=== PATIENT | female | born 1955 | race Caucasian/White ===

== ENCOUNTER 2023-10-18 14:11 | Outpatient (AMB) | payer OTHER, SELFPAY ==
--- NOTE | 2023-10-18 14:19 | MHC.PC.OV ---
Vital Signs 10/18/23 14:24 Height 5 ft 4.96 in Weight 170 lb 4 oz BMI 28.4 BP 104/63 Blood Pressure Location Lt brachial Position Sitting Pulse 88 Pulse Source Pulse Oximeter Temp 98.1 F Temp Source Oral Pulse Oximetry (%) 97 Oxygen Delivery Method Room Air Intake Visit Reasons: Est Care Intake Note: New patient visit Allergies No Known Allergies Allergy (Verified 10/18/23 14:19) Tobacco use date assessed: 10/18/23 Fall risk assessment: No Falls in past year Last assessed Fall Risk: 10/18/23 Dental Screening Dental Screen Date: 10/18/23 Did you have a dental visit in the last 12 months?: Yes Did you have a dental problem in the last 6 months where you did not have access to dental care?: No Was dental information given to patient?: Patient has dentist [facility] Surgical History (Updated 10/18/23 @ 14:35 by Dior Lockhart CMA) Hx of tonsillectomy Family History (Updated 10/18/23 @ 14:35 by Dior Lockhart CMA) Paternal Grandfather Emphysema lung Alcoholism Mother CAD (coronary artery disease) Dementia Social History Housing: House Patient Tobacco Use Status: Current someday Tobacco user Cigarette Packs Per Day: 0.25 Years Smoked: 30 e-Cigarette/Vaping Use: Never Used Second Hand Smoke Exposure: No service: No Current occupational status: employed Current occupation: [employer] Current occupational exposures/hazards: No Cognitive needs: No Hearing needs: No Vision needs: Yes (glasses) Questionnaire PHQ-9 Over the last 2 weeks, how often have you been bothered by any of the following problems? 1. Little interest or pleasure in doing things: not at all 2. Feeling down, depressed, or hopeless: not at all 3. Trouble falling or staying asleep, or sleeping too much: not at all 4. Feeling tired or having little energy: several days 5. Poor appetite or overeating: not at all 6. Feeling bad about yourself - or that you are a failure or have let yourself or your family down: not at all 7. Trouble concentrating on things, such as reading the newspaper or watching television: not at all 8. Moving or speaking so slowly that other people could have noticed. Or the opposite - being so fidgety or restless that you have been moving around a lot more than usual: not at all 9. Thoughts that you would be better off or of hurting yourself in some way: not at all Total score: 1 Depression Screening Interpretation: Negative Depression Screening Done: Yes [id number] - PHQ-9 Billing: Yes Source: Developed by Drs. Nilo Bartlett, Keyana Fleming, Fritz Fall and colleagues, with an educational billie from [employer]. Thrive Questionnaire Date Thrive assessed: 10/18/23 I am a: Patient What is your living situation today?: I have a steady place to live Within the past 12 months, did the food you bought not last and you didn't have the money to get more?: Never true Within the past 12 months, did you worry whether your food would run out before you got money to buy more?: Never true Do you have trouble paying for medicines?: No Do you have trouble getting transportation to medical appointments?: No Do you have trouble paying your heating and electricity bill?: No Do you have trouble taking care of your child, family member or friend?: No Do you have trouble with day-to-day activities such as bathing, preparing meals, shopping, managing finances, etc.?: No Are you currently unemployed and looking for a job?: No Are you interested in more education?: No Please select the resources that you would like help with: None Currently or been in a relationship where the following occur: no concerns reported THRIVE Score: 0 AUDIT C Alcohol Use Questionnaire (AUDIT-C) 1. How often do you have a drink containing alcohol?: Monthly or less 2. How many drinks containing alcohol do you have on a typical day when you are drinking?: 1 or 2 3. How often do you have six or more drinks on one occasion?: Never Total Score: 1 RON-7 AMB Questionnaire RON-7 Date RON - 7 assessed: 10/18/23 Feeling nervous, anxious, or on edge: 0 = Not at all Not being able to stop or control worryin = Not at all Worrying too much about different things: 0 = Not at all Trouble relaxin = Not at all Being so restless that it is hard to sit still: 0 = Not at all Becoming easily annoyed or irritable: 0 = Not at all Feeling afraid as if something awful might happen: 0 = Not at all Total RON-7 score (0-4 normal; 5-9 mild; 10-14 moderate; 15-21 severe): 0 Source: Developed by Drs. Nilo Bartlett, Keyana Fleming, Fritz Fall and colleagues, with an educational billie from [employer]. RON-7 Assessment Billing RON-7 Assessment Tool: RON-7 Assessment 14818 Physical exam (Primary Care) Vital Signs: Last Vital Signs Temp 98.1 F 10/18/23 14:24 Pulse 88 10/18/23 14:24 BP 104/63 10/18/23 14:24 Pulse Ox 97 10/18/23 14:24 Oxygen Delivery Method Room Air 10/18/23 14:24 BMI result Body Mass Index 28.4 Tobacco/Smoking Status: Tobacco use Status Tobacco use date assessed 10/18/23 10/18/23 14:26 Patient Tobacco Use Status Current someday Tobacco 10/18/23 14:26 e-Cigarette/Vaping Use Never Used 10/18/23 14:26 PHQ-9: PHQ-9 Score PHQ-9: Total score 1 10/18/23 15:14 Depression Screening Interpretation: Negative Thrive Assessment: Date of Thrive Assessment Date Thrive assessed 10/18/23 10/18/23 14:42 Currently or been in a relationship where the following occur: no concerns reported Assessment and Plan Assessment & Plan Orders: Orders Comprehensive Met. Panel 10/18/23 I10 - Essential (primary) hypertension, R73.09 - Other abnormal glucose, Z13.0 - Encounter for screening for diseases of the blood and blood-forming organs and certain disorders involving the immune mechanism, Z13.228 - Encounter for screening for other metabolic disorders Vitamin B12 10/18/23 I10 - Essential (primary) hypertension, R73.09 - Other abnormal glucose, Z13.0 - Encounter for screening for diseases of the blood and blood-forming organs and certain disorders involving the immune mechanism, Z13.228 - Encounter for screening for other metabolic disorders Hemoglobin A1c 10/18/23 I10 - Essential (primary) hypertension, R73.09 - Other abnormal glucose, Z13.0 - Encounter for screening for diseases of the blood and blood-forming organs and certain disorders involving the immune mechanism, Z13.228 - Encounter for screening for other metabolic disorders Complete Blood Count Auto Diff 10/18/23 I10 - Essential (primary) hypertension, R73.09 - Other abnormal glucose, Z13.0 - Encounter for screening for diseases of the blood and blood-forming organs and certain disorders involving the immune mechanism, Z13.228 - Encounter for screening for other metabolic disorders Lipid Panel 10/18/23 I10 - Essential (primary) hypertension, R73.09 - Other abnormal glucose, Z13.0 - Encounter for screening for diseases of the blood and blood-forming organs and certain disorders involving the immune mechanism, Z13.228 - Encounter for screening for other metabolic disorders Referrals Open Access Screening Colonoscopy Referral Z12.11 - Encounter for screening for malignant neoplasm of colon, Z12.12 - Encounter for screening for malignant neoplasm of rectum Dermatology Referral L98.9 - Disorder of the skin and subcutaneous tissue, unspecified Medications: New hydrochlorothiazide 25 mg PO DAILY 30 days 30 tabs 0RF hydrochlorothiazide 25 mg PO DAILY 90 days 90 tabs 3RF tramadol 50 mg PO Q8H PRN 84 tabs 0RF pain 28 days semaglutide (Ozempic) 2 mg (0.75 mL) subcut QWEEK 9 mL 3RF tramadol 50 mg PO Q8H 28 days PRN 84 tabs 0RF pain hydrochlorothiazide 25 mg PO DAILY 90 tabs 3RF 90 days Coding Level of Care Code Est Pt Level 4 (13756) Additional Codes RON-7 Assessment Billing - RON-7 Assessment Tool: RON-7 Assessment 91005 ([id number])
[2023-10-18 14:24] VITALS: BP 104/63; PULSE 88; TEMP 36.7; O2SAT 97; BMI 28.4
== END 2023-10-18 15:16 | disposition home or self-care (01) ==
PROVIDERS: PCP Internal Medicine; Visit Provider Internal Medicine
DX: I10 Essential (primary) hypertension (principal); E66.9 Obesity, unspecified; Z68.28 Body mass index [BMI] 28.0-28.9, adult
CPT/HCPCS: 99214

== ENCOUNTER 2024-04-03 10:02 | Outpatient (AMB) | payer OTHER, SELFPAY ==
--- NOTE | 2024-04-03 10:08 | A.OFFPC_ITS ---
Vital Signs 04/03/24 10:13 Height 5 ft 5 in Weight 174 lb 8 oz BMI 29.0 BP 128/72 Blood Pressure Location Rt brachial Position Sitting Pulse 66 Pulse Source Pulse Oximeter Pulse Oximetry (%) 99 Oxygen Delivery Method Room Air Intake Visit Reasons: follow up htn Intake Note: Follow up htn Allergies No Known Allergies Allergy (Verified 04/03/24 10:10) Tobacco use date assessed: 10/18/23 Dental Screening Dental Screen Date: 10/18/23 HPI HPI Comments History of Present Illness Details The patient is a 68-year-old female with a past medical history of hypertension, hyperlipidemia, hyperglycemia, chronic left thigh pain and GERD presenting for follow-up Cardiovascular: Hypertension, hyperlipidemia stable on hydrochlorothiazide, lisinopril, lipitor. 128/72 No chest pain or shortness of breath Obesity: Gained four pounds since her last visit. BMI 29 Followed with medical weight management and was on Qsymia, Topamax and phentermine. She has done well more recently with Ozempic however there seems to be an insurance issue getting this medication now MSK: She has chronic left thigh. History of hematoma necrotizing tissue. No interval change. Takes tramadol as needed . She has had issues with trigger fingers. Colonoscopy 2017 Dr. Henderson Mammogram 08/2023 ROS CONSTITUTIONAL: Denies weight loss, fever and chills. HEENT: Denies changes in vision and hearing. RESPIRATORY: Denies SOB and cough. CV: Denies palpitations and CP GI: Denies abdominal pain, nausea, vomiting and diarrhea. : Denies dysuria and urinary frequency. MSK: Denies new myalgia and joint pain. SKIN: Denies rash and pruritus. NEUROLOGICAL: Denies headache PSYCHIATRIC: Denies recent changes in mood. PHYSICAL EXAM: GENERAL: Alert and oriented x 3. NAD EYES: EOMI. Anicteric. HENT: Moist mucous membranes. No scleral icterus. LUNGS: Clear to auscultation bilaterally. CARDIOVASCULAR: Regular rate and rhythm. No murmur. No JVD. ABDOMEN: Soft, non-tender +bs EXTREMITIES: No edema. Non-tender. SKIN: No rashes or lesions. Warm. NEUROLOGIC: No focal neurological deficits. CN II-XII grossly intact PSYCHIATRIC: Cooperative. Appropriate mood and affect [facility] Surgical History (Updated 10/18/23 @ 14:35 by Dior Lockhart CMA) Hx of tonsillectomy Family History (Updated 10/18/23 @ 14:35 by Dior Lockhart CMA) Paternal Grandfather Emphysema lung Alcoholism Mother CAD (coronary artery disease) Dementia Social History Housing: House Patient Tobacco Use Status: Current someday Tobacco user Cigarette Packs Per Day: 0.25 Years Smoked: 30 e-Cigarette/Vaping Use: Never Used Second Hand Smoke Exposure: No service: No Current occupational status: employed Current occupation: [employer] Current occupational exposures/hazards: No Cognitive needs: No Hearing needs: No Vision needs: Yes (glasses) Questionnaire PHQ-9 Over the last 2 weeks, how often have you been bothered by any of the following problems? 1. Little interest or pleasure in doing things: not at all 2. Feeling down, depressed, or hopeless: not at all 3. Trouble falling or staying asleep, or sleeping too much: not at all 4. Feeling tired or having little energy: not at all 5. Poor appetite or overeating: not at all 6. Feeling bad about yourself - or that you are a failure or have let yourself or your family down: not at all 7. Trouble concentrating on things, such as reading the newspaper or watching television: not at all 8. Moving or speaking so slowly that other people could have noticed. Or the opposite - being so fidgety or restless that you have been moving around a lot more than usual: not at all 9. Thoughts that you would be better off or of hurting yourself in some way: not at all Total score: 0 Source: Developed by Drs. Nilo Bartlett, Keyana Fleming, Fritz Fall and colleagues, with an educational billie from [employer]. Thrive Questionnaire Date Thrive assessed: 03/28/24 Within the past 12 months, did the food you bought not last and you didn't have the money to get more?: Often true Do you have trouble taking care of your child, family member or friend?: No Do you have trouble with day-to-day activities such as bathing, preparing meals, shopping, managing finances, etc.?: No Are you currently unemployed and looking for a job?: No Are you interested in more education?: No Please select the resources that you would like help with: None Currently or been in a relationship where the following occur: No concerns reported THRIVE Score: 1 AUDIT C Alcohol Use Questionnaire (AUDIT-C) 1. How often do you have a drink containing alcohol?: Never Total Score: 0 RON-7 AMB Questionnaire RON-7 Date RON - 7 assessed: 10/18/23 Feeling nervous, anxious, or on edge: 0 = Not at all Not being able to stop or control worryin = Not at all Worrying too much about different things: 0 = Not at all Trouble relaxin = Not at all Being so restless that it is hard to sit still: 0 = Not at all Becoming easily annoyed or irritable: 0 = Not at all Feeling afraid as if something awful might happen: 0 = Not at all Total RON-7 score (0-4 normal; 5-9 mild; 10-14 moderate; 15-21 severe): 0 Source: Developed by Drs. Nilo Bartlett, Keyana Fleming, Fritz Fall and colleagues, with an educational billie from [employer]. Physical exam (Primary Care) Vital Signs: Last Vital Signs Pulse 66 04/03/24 10:13 BP 128/72 04/03/24 10:13 Pulse Ox 99 04/03/24 10:13 Oxygen Delivery Method Room Air 04/03/24 10:13 BMI result Body Mass Index 29.0 Tobacco/Smoking Status: Tobacco use Status Tobacco use date assessed 10/18/23 04/03/24 10:12 Patient Tobacco Use Status Current someday Tobacco 04/03/24 10:12 e-Cigarette/Vaping Use Never Used 04/03/24 10:12 PHQ-9: PHQ-9 Score PHQ-9: Total score 0 04/03/24 10:21 Thrive Assessment: Date of Thrive Assessment Date Thrive assessed 03/28/24 04/03/24 10:12 Currently or been in a relationship where the following occur: No concerns reported Coding Level of Care Code Est Pt Level 4 (91797) Diagnoses Primary hypertension I10 Hypertension type: primary hypertension Mixed hyperlipidemia E78.2 Hyperlipidemia type: mixed hyperlipidemia Assessment & Plan Assessment & Plan (1) Hypertension: Code(s): I10 - Essential (primary) hypertension Category: Medical Qualifiers: Hypertension type: primary hypertension Qualified Code(s): I10 - Essential (primary) hypertension Plan: well controlled on current medications (2) Hyperlipidemia: Code(s): E78.5 - Hyperlipidemia, unspecified Category: Medical Qualifiers: Hyperlipidemia type: mixed hyperlipidemia Qualified Code(s): E78.2 - Mixed hyperlipidemia Plan: stable on statin therapy Orders: Orders Comprehensive Met. Panel Today E66.3 - Overweight, E78.5 - Hyperlipidemia, unspecified, I10 - Essential (primary) hypertension, R35.89 - Other polyuria TSH reflex Free T4 Today E66.3 - Overweight, E78.5 - Hyperlipidemia, unspecified, I10 - Essential (primary) hypertension, R35.89 - Other polyuria Complete Blood Count Auto Diff Today E66.3 - Overweight, E78.5 - Hyperlipidemia, unspecified, I10 - Essential (primary) hypertension, R35.89 - Other polyuria Lipid Panel Today E66.3 - Overweight, E78.5 - Hyperlipidemia, unspecified, I10 - Essential (primary) hypertension, R35.89 - Other polyuria Hemoglobin A1c Today E66.3 - Overweight, E78.5 - Hyperlipidemia, unspecified, I10 - Essential (primary) hypertension, R35.89 - Other polyuria Referrals Open Access Screening Colonoscopy Referral Z12.11 - Encounter for screening for malignant neoplasm of colon, Z12.12 - Encounter for screening for malignant neoplasm of rectum Medications: Refilled tramadol 50 mg PO Q8H PRN 84 tabs 0RF pain 28 days
[2024-04-03 10:13] VITALS: BP 128/72; PULSE 66; O2SAT 99; BMI 29.0
== END 2024-04-03 10:51 | disposition home or self-care (01) ==
PROVIDERS: PCP Internal Medicine; Visit Provider Internal Medicine
DX: I10 Essential (primary) hypertension (principal); E78.2 Mixed hyperlipidemia

== ENCOUNTER 2025-02-15 08:25 | Day surgery (SDC) | payer OTHER, SELFPAY ==
[2025-02-11 14:25] VITALS: BMI 29.0
--- NOTE | 2025-02-12 09:50 | P.CONAN_ITS ---
Documented by User: Milagro Bennett NP 02/12/25 09:51 HPI - Anesthesia Eval Consult details Narrative: 69 yr old female for colonoscopy Anesthesia Pre-Procedure Meds Is the patient on any of the following meds?: GLP1/DPP4 PMFSH Active Problems Active Problems: All Active Problems Thigh pain (Acute) Hyperlipidemia (Acute) Overweight (Acute) Long-term (current) use of injectable non-insulin antidiabetic drugs (Acute) Hypertension (Acute) Family History Family History (Updated 10/18/23 @ 14:35 by Dior Lockhart CMA) Paternal Grandfather Emphysema lung Alcoholism Mother CAD (coronary artery disease) Dementia Surgical History Surgical History (Updated 10/18/23 @ 14:35 by Dior Lockhart CMA) Hx of tonsillectomy Social History Social History Housing: House Patient Tobacco Use Status: Current everyday Tobacco user Tobacco use type: Cigarette Cigarette Packs Per Day: 0.25 Years Smoked: 30 e-Cigarette/Vaping Use: Never Used Second Hand Smoke Exposure: No Use of substances other than those prescribed or required for medical reasons: No Advance Directives: No Advance Directives Information Provided: Yes service: No Current occupational status: employed Current occupation: [employer] Current occupational exposures/hazards: No Cognitive needs: No Hearing needs: No Vision needs: Yes (glasses) Meds Allergies Allergy/AdvReac Type Severity Reaction Status Date / Time No Known Allergies Allergy Verified 04/03/24 10:10 Home Medications ?Medication ?Instructions ?Recorded ?Confirmed ?Last Taken ?Type nabumetone 750 mg tablet 750 mg PO BID PRN Pain 10/1702/11/25 Unknown History omeprazole 20 mg capsule,delayed 20 mg PO DAILY PRN Ac id Reflux 02/11/25 02/11/25 Unknown History release Exam Height,Weight and Vital Signs: Height 5 ft 5 in Weight 78.925 kg Documented by User: Augie Hunter MD 02/15/25 09:37 PMFSH Family History Family History (Updated 10/18/23 @ 14:35 by Dior Lockhart CMA) Paternal Grandfather Emphysema lung Alcoholism Mother CAD (coronary artery disease) Dementia Family history of problems with anesthesia: No Surgical History Surgical History (Updated 10/18/23 @ 14:35 by Dior Lockhart CMA) Hx of tonsillectomy History of Problems with Anesthesia: No Social History Social History Housing: House Patient Tobacco Use Status: Current everyday Tobacco user Tobacco use type: Cigarette Cigarette Packs Per Day: 0.25 Years Smoked: 30 e-Cigarette/Vaping Use: Never Used Second Hand Smoke Exposure: No Use of substances other than those prescribed or required for medical reasons: No Advance Directives: No Advance Directives Information Provided: Yes service: No Current occupational status: employed Current occupation: [employer] Current occupational exposures/hazards: No Cognitive needs: No Hearing needs: No Vision needs: Yes (glasses) Meds Allergies Allergy/AdvReac Type Severity Reaction Status Date / Time No Known Allergies Allergy Verified 04/03/24 10:10 Home Medications ?Medication ?Instructions ?Recorded ?Confirmed ?Last Taken ?Type nabumetone 750 mg tablet 750 mg PO BID PRN Pain 10/1702/11/25 Unknown Histo ry omeprazole 20 mg capsule,delayed 20 mg PO DAILY PRN Ac id Reflux 02/11/25 02/11/25 Unknown History release Exam Height,Weight and Vital Signs: u Height 5 ft 5 in Weight 78.925 kg Airway Mallampati Class: III TM Dist: >3cm Neck ROM: Full Loose/Missing/Broken Teeth: No Heart: RRR Lungs: Cta Other: NPO Assessment and Plan Assessment Anesthesia Assessment: Anesthesia Plan Discussed Final Anesthetic Review Family History of Problems with Anesthesia: No History of Problems with Anesthesia: No NPO: Yes ASA Class: II Final Preanesthetic Review: No Changes in Pt Med Stat Patient Risk: Low Procedure Risk: Low Anesthetic Plan Anesthetic Plan: TIVA Disposition: Standard PACU
[2025-02-15 08:44] VITALS: BMI 31.3
[2025-02-15 08:55] VITALS: BP 139/73; PULSE 61; RESP 16; TEMP 36.2; O2SAT 98
[2025-02-15] MEDS: Lactated Ringers 1,000 ML 100 ML IVCONT (08:56)
--- NOTE | 2025-02-15 09:00 | MHC.SHP ---
Pre-Procedural Eval Section A - 24 Hr Update-Section A only Date of Service: 02/15/25 Section B - Complete if H&P > 30 days Chief Complaint: screening Relevant Family History (Specify if Yes): No Relevant Social History: Tobacco Use Present Medications: see Short Stay Collaborative assessment Medical History: Significant History (HLP, HTN ) History of Previous Operations: Relevant previous surgery/procedure and date(s) ( Hx of tonsillectomy) Allergies: Allergies Allergy/AdvReac Type Severity Reaction Status Date / Time No Known Allergies Allergy Verified 04/03/24 10:10 Review of Systems Sugical H&P ROS: Negative: Constitution, Cardiovascular, Respiratory, Neurological, Psychiatric, Hem-Onc, Allergic/Immunologic, Gastrointestinal, Genitourinary, Musculoskeletal, Integumentary, Endocrine and Eyes/Ears/Nose/Throat Exam Surgical H&P Exam: Normal: HEENT, Normal: Heart, Normal: Lungs, Normal: Extremities, Normal: Abdomen, Normal: Skin and Normal: Neurological Plan Diagnosis/Plan: Unchanged I have reviewed the history and physical and performed a pertinent physical examination on my patient. No changes have occurred unless specified. Time Spent With Patient Time: Total time managing care of this patient today ____ minutes.
--- NOTE | 2025-02-15 10:10 | HO.OPN-COLON ---
Colonoscopy Operative Note Operative Note Date of Service: 02/15/25 Narrative: Operative Information Procedure Description: Colonoscopy Indication: screening Anesthesia: MAC COLONOSCOPY Instrument: Olympus variable stiffness pediatric scope 190L Colonoscopy Monitoring: Vital signs and clinical assessment, continuous EKG monitoring, Pulse oximetry, Carbon Dioxide monitoring and blood pressure monitoring were done throughout the procedure. Colon withdrawal time was 16 minutes. Procedure: The patient was placed in the left lateral decubitis position and pre-procedure medications were administered. After a digital rectal examination of the ano-rectum, the video colonoscope was inserted into the rectum and advanced through the colon to the cecum/TI. The colonoscope was slowly withdrawn in a retrograde panoramic fashion and the colon mucosa was carefully examined including a retroflexed view of the rectum. Findings and interventions are described below. Procedure Difficulty: moderate-pressure applied Findings: Terminal Ileum-normal Cecum: non bleeding AVM noted Ascending Colon: normal Hepatic flexure- 10-12 mm sessile polyp lifted with eleview and removed with cold snare and x 1 clip applied Transverse Colon -normal Descending Colon:normal Sigmoid Colon: mild diverticulosis Rectum: Retroflexion with small internal hemorrhoids seen, grade I Anorectum - normal Intervention: cold snare and eleview Colon preparation: O'Brien Bowel Preparation Scale Right colon; 2 Transverse colon: 2 Left colon; 1-2 (0 = Unprepared colon segment with mucosa not seen due to solid stool that cannot be cleared. 1 = Portion of mucosa of the colon segment seen, but other areas of the colon segment not well seen due to staining, residual stool and/or opaque liquid. 2 = Minor amount of residual staining, small fragments of stool and/or opaque liquid, but mucosa of colon segment seen well. 3 = Entire mucosa of colon segment seen well with no residual staining, small fragments of stool or opaque liquid) Impression and Post Procedure Diagnosis: diverticulosis colon polyp x 1 internal hemorrhoids Plan: High fiber diet leaflet Avoid straining at stool, epsom salts and sitz bath, anusol supps or cream Repeat Colonoscopy in 3 years due to polyp and fair prep on left or earlier if clinically indicated Above findings were reviewed with the patient and relevant handouts were provided if indicated.
[2025-02-15 10:11] VITALS: BP 106/53; PULSE 72; RESP 22; TEMP 36.9; O2SAT 99
[2025-02-15 10:26] VITALS: BP 130/80; PULSE 76; RESP 18; TEMP 37; O2SAT 99
== END 2025-02-15 11:07 | disposition home or self-care (01) ==
PROVIDERS: PCP Internal Medicine; Visit Provider Internal Medicine Gastroenterology
PROC: 0DJD8ZZ Inspection of Lower Intestinal Tract, Via Natural or Artificial Opening Endoscopic (ICD-10-PCS; CPT 45378; principal; 2025-02-15 10:10)
DX: Z12.11 Encounter for screening for malignant neoplasm of colon (principal); D12.3 Benign neoplasm of transverse colon; K57.30 Diverticulosis of large intestine without perforation or abscess without bleeding; K55.20 Angiodysplasia of colon without hemorrhage; K64.0 First degree hemorrhoids; I10 Essential (primary) hypertension; Z79.899 Other long term (current) drug therapy
CPT/HCPCS: 45385; 45381; 88305; J2003; J2704

== ENCOUNTER → 2025-02-15 08:25 | Outpatient (BNV) | payer OTHER, SELFPAY | PROVIDERS: PCP Internal Medicine; Visit Provider Internal Medicine Gastroenterology | DX: Z12.11 Encounter for screening for malignant neoplasm of colon (principal); K55.20 Angiodysplasia of colon without hemorrhage; D12.3 Benign neoplasm of transverse colon; K57.30 Diverticulosis of large intestine without perforation or abscess without bleeding; K64.0 First degree hemorrhoids | CPT/HCPCS: 45381; 45385 ==

== ENCOUNTER 2025-03-30 11:14 | Outpatient (AMB) | payer OTHER, SELFPAY ==
--- NOTE | 2025-03-30 11:28 | A.OFFPC_ITS ---
Vital Signs 03/30/25 11:29 Height 5 ft 5 in Weight 194 lb BMI 32.3 BP 116/74 Blood Pressure Location Rt brachial Position Sitting Respiration 14 Pulse 73 Pulse Source Pulse Oximeter Pulse Oximetry (%) 97 Oxygen Delivery Method Room Air Intake Visit Reasons: awv/cpe (rebooked from 12/29) Intake Note: Physical Glove Turner Required: No Allergies No Known Allergies Allergy (Verified 03/30/25 11:29) Tobacco use date assessed: 03/30/25 Fall risk assessment: No Falls in past year Last assessed Fall Risk: 03/30/25 Dental Screening Dental Screen Date: 03/30/25 Did you have a dental visit in the last 12 months?: Yes Did you have a dental problem in the last 6 months where you did not have access to dental care?: No Was dental information given to patient?: Patient has dentist HPI HPI Comments History of Present Illness Details The patient is a 69-year-old female with a past medical history of hypertension, hyperlipidemia, hyperglycemia, chronic left thigh pain and GERD presenting for CPE Cardiovascular: On hydrochlorothiazide, lisinopril, lipitor. Blood pressure is well controlled No chest pain or shortness of breath Obesity: Has gained some weight. Did not like zeAnte Up, would like to pay for ozQordoba if feasible. Followed with medical weight management and was on Qsymia, Topamax and phentermine. A1C 5.8% MSK: She has chronic left thigh. History of hematoma necrotizing tissue. No interval change. Takes tramadol as needed . She has had issues with trigger fingers. She saw hand ctr a few years ago and would like to see them again for increase left CMC and thumb pain Colonoscopy 02/15/2025 [facility]-3 year repeat Mammogram 08/2023. Mammo spring 20[facility] not received Decline flu vaccine ROS CONSTITUTIONAL: Denies weight loss, fever and chills. HEENT: Denies changes in vision and hearing. RESPIRATORY: Denies SOB and cough. CV: Denies palpitations and CP GI: Denies abdominal pain, nausea, vomiting and diarrhea. : Denies dysuria and urinary frequency. MSK: see HPI SKIN: Denies rash and pruritus. NEUROLOGICAL: Denies headache PSYCHIATRIC: Denies recent changes in mood. PHYSICAL EXAM: GENERAL: Alert and oriented x 3. NAD EYES: EOMI. Anicteric. HENT: Moist mucous membranes. No scleral icterus. LUNGS: Clear to auscultation bilaterally. CARDIOVASCULAR: Regular rate and rhythm. No murmur. No JVD. ABDOMEN: Soft, non-tender +bs EXTREMITIES: No edema. Non-tender. SKIN: No rashes or lesions. Warm. NEUROLOGIC: No focal neurological deficits. CN II-XII grossly intact PSYCHIATRIC: Cooperative. Appropriate mood and affect [facility] Surgical History Hx of tonsillectomy Family History Paternal Grandfather Emphysema lung Alcoholism Mother CAD (coronary artery disease) Dementia Social History Housing: House Patient Tobacco Use Status: Current everyday Tobacco user Tobacco use type: Cigarette Cigarette Packs Per Day: 0.25 Years Smoked: 30 e-Cigarette/Vaping Use: Never Used Second Hand Smoke Exposure: No service: No Current occupational status: employed Current occupation: [employer] Current occupational exposures/hazards: No Cognitive needs: No Hearing needs: No Vision needs: Yes (glasses) Questionnaire PHQ-9 Over the last 2 weeks, how often have you been bothered by any of the following problems? 1. Little interest or pleasure in doing things: not at all 2. Feeling down, depressed, or hopeless: not at all 3. Trouble falling or staying asleep, or sleeping too much: not at all 4. Feeling tired or having little energy: not at all 5. Poor appetite or overeating: not at all 6. Feeling bad about yourself - or that you are a failure or have let yourself or your family down: not at all 7. Trouble concentrating on things, such as reading the newspaper or watching television: not at all 8. Moving or speaking so slowly that other people could have noticed. Or the opposite - being so fidgety or restless that you have been moving around a lot more than usual: not at all 9. Thoughts that you would be better off or of hurting yourself in some way: not at all Total score: 0 Depression Screening Interpretation: Negative Depression Screening Done: Yes 32349 - PHQ-9 Billing: Yes Source: Developed by Drs. Nilo Bartlett, Keyana Fleming, Fritz Fall and colleagues, with an educational billie from [employer]. Thrive Questionnaire Date Thrive assessed: 03/24/25 I am a: Patient What is your living situation today?: I have a steady place to live Within the past 12 months, did the food you bought not last and you didn't have the money to get more?: Never true Within the past 12 months, did you worry whether your food would run out before you got money to buy more?: I choose not to answer this question Do you have trouble paying for medicines?: No Do you have trouble getting transportation to medical appointments?: No Do you have trouble paying your heating and electricity bill?: No Do you have trouble taking care of your child, family member or friend?: No Do you have trouble with day-to-day activities such as bathing, preparing meals, shopping, managing finances, etc.?: No Are you currently unemployed and looking for a job?: No Are you interested in more education?: No Please select the resources that you would like help with: None Currently or been in a relationship where the following occur: No concerns reported THRIVE Score: 0 AUDIT C Alcohol Use Questionnaire (AUDIT-C) 1. How often do you have a drink containing alcohol?: Monthly or less 2. How many drinks containing alcohol do you have on a typical day when you are drinking?: 1 or 2 3. How often do you have six or more drinks on one occasion?: Never Total Score: 1 RON-7 AMB Questionnaire RON-7 Date RON - 7 assessed: 10/18/23 Feeling nervous, anxious, or on edge: 0 = Not at all Not being able to stop or control worryin = Not at all Worrying too much about different things: 0 = Not at all Trouble relaxin = Not at all Being so restless that it is hard to sit still: 0 = Not at all Becoming easily annoyed or irritable: 0 = Not at all Feeling afraid as if something awful might happen: 0 = Not at all Total RON-7 score (0-4 normal; 5-9 mild; 10-14 moderate; 15-21 severe): 0 Source: Developed by Keyana Rome.W. Lonnie, Fritz Fall and colleagues, with an educational billie from [employer]. Physical exam (Primary Care) Vital Signs: Last Vital Signs Pulse 73 03/30/25 11:29 Resp 14 03/30/25 11:29 BP 116/74 03/30/25 11:29 Pulse Ox 97 03/30/25 11:29 Oxygen Delivery Method Room Air 03/30/25 11:29 BMI result Body Mass Index 32.3 Tobacco/Smoking Status: Tobacco use Status Tobacco use date assessed 03/30/25 03/30/25 11:35 Patient Tobacco Use Status Current everyday Tobacco 03/30/25 11:28 Tobacco use type Cigarette 03/30/25 11:28 e-Cigarette/Vaping Use Never Used 03/30/25 11:28 PHQ-9: PHQ-9 Score PHQ-9: Total score 0 03/30/25 11:28 Depression Screening Interpretation: Negative Thrive Assessment: Date of Thrive Assessment Date Thrive assessed 03/24/25 03/30/25 11:28 Currently or been in a relationship where the following occur: No concerns reported Coding Level of Care Code Est Pt Prev Care >65y(80060) Diagnoses Physical exam Z00.00 Primary hypertension I10 Hypertension type: primary hypertension Mixed hyperlipidemia E78.2 Hyperlipidemia type: mixed hyperlipidemia Pain of left thumb M79.645 Obesity (BMI 30.0-34.9) E66.811 Additional Codes PHQ-9 - 39234 - PHQ-9 Billing: Yes ([id number]) Assessment & Plan Assessment & Plan (1) Physical exam: Code(s): Z00.00 - Encounter for general adult medical examination without abnormal findings (2) Hypertension: Code(s): I10 - Essential (primary) hypertension Category: Medical Qualifiers: Hypertension type: primary hypertension Qualified Code(s): I10 - Esse ntial (primary) hypertension (3) Hyperlipidemia: Code(s): E78.5 - Hyperlipidemia, unspecified Category: Medical Qualifiers: Hyperlipidemia type: mixed hyperlipidemia Qualified Code(s): E78.2 - Mixed hyperlipidemia (4) Pain of left thumb: Code(s): M79.645 - Pain in left finger(s) Category: Medical (5) Obesity (BMI 30.0-34.9): Code(s): E66.811 - Obesity, class 1 Category: Medical Plan 69 year old presenting for physical exam Interval history reviewed Preventive measures for age discussed Obesity-ozempic ordered HTN controlled Left thumb pain-referred orthopedics Orders: Referrals Orthopedics Referral M79.645 - Pain in left finger(s) Medications: New Ozempic (semaglutide) 0.5 mg (0.736 mL) subcut QWEEK 9 mL 3RF NS E66.811 - Obesity, class 1, E78.2 - Mixed hyperlipidemia Ozempic (semaglutide) patient will pay out of pocket if not covered by insurance 0.5 mg (0.736 mL) subcut QWEEK 9 mL 3RF NS E66.811 - Obesity, class 1, E78.2 - Mixed hyperlipide elba Refilled lisinopril 5 mg PO DAILY 90 tabs 3RF tramadol 50 mg PO Q8H PRN 84 tabs 0RF pain 28 days M79.659 - Pain in unspecified thigh atorvastatin 40 mg PO DAILY 90 tabs 3RF Discontinued Zepbound (tirzepatide (weight loss)) Discontinued Reason: Doctor's Order 2.5 mg (0.5 mL) subcut QWEEK 4 weeks 2 mL 3RF NS E66.3 - Overweight, I10 - Essential (primary) hypertension
[2025-03-30 11:29] VITALS: BP 116/74; PULSE 73; RESP 14; O2SAT 97; BMI 32.3
== END 2025-03-30 12:11 | disposition home or self-care (01) ==
LOC: HO.HMCFM 11:15
PROVIDERS: PCP Internal Medicine; Visit Provider Internal Medicine
DX: Z00.00 Encounter for general adult medical examination without abnormal findings (principal); I10 Essential (primary) hypertension; E78.2 Mixed hyperlipidemia; M79.645 Pain in left finger(s); E66.811 Obesity, class 1; Z68.32 Body mass index [BMI] 32.0-32.9, adult

== ENCOUNTER → 2025-03-30 11:14 | Outpatient (BNVA) | payer OTHER, SELFPAY | PROVIDERS: PCP Internal Medicine; Visit Provider Internal Medicine | DX: Z00.00 Encounter for general adult medical examination without abnormal findings (principal); I10 Essential (primary) hypertension; E78.2 Mixed hyperlipidemia; M79.645 Pain in left finger(s); E66.811 Obesity, class 1; Z68.32 Body mass index [BMI] 32.0-32.9, adult; Z79.899 Other long term (current) drug therapy; Z13.31 Encounter for screening for depression | CPT/HCPCS: 96127 ==